=== PATIENT | female | born 1950 ===

== ENCOUNTER 2025-03-01 05:52 | Day surgery (SDC) | payer OTHER ==
[~2025-03-01 05:52] MED LIST: ANASTROZOLE1 MG PO; COZAAR25 MG PO; GLIPIZIDE XL10 MG PO; JANUVIA25 MG PO; SIMVASTATIN80 MG
[2025-03-01] MEDS ORDERED: LIDOCAINE HCL 1%/EPINEPHRINE 20ML VIAL IJ ONE ×2 (11:30)
[2025-03-01] MEDS ORDERED: GENTAMICIN SULFATE 40 MG/ML VIAL IV ONE (11:30)
[2025-03-01] MEDS ORDERED: GENTAMICIN SULFATE 40 MG/ML VIAL IR ONE (11:30)
[2025-03-01] MEDS ORDERED: CIPROFLOXACIN IN 5 % DEXTROSE 400 MG/200 ML PIGGYBAG IV ONE (11:30)
[2025-03-01] MEDS ORDERED: CHLORHEXIDINE GLUCONATE 120 ML BOTTLE TOP ONE ×2 (11:30)
[2025-03-01] MEDS ORDERED: MACROBID 100 M100 MG PO (12:13)
[2025-03-01] MEDS ORDERED: TRAM1TAB98 PO (12:13)
== END 2025-03-01 16:35 | disposition home or self-care (01) ==
LOC: CIR.AMB 05:52
PROVIDERS: ATTEND Obstetrics & Gynecology Gynecology
DX: N81.5 Vaginal enterocele (principal); N81.6 Rectocele; N81.11 Cystocele, midline; Z88.0 Allergy status to penicillin